=== PATIENT | female | born 1970 | race African-American/Black ===

== ENCOUNTER 2019-07-19 20:18 | Emergency (ER) | payer BC ==
[~2019-07-19] VITALS: Ht 165.1 cm; Wt 65.8 kg
[~2019-07-19 20:18] MED LIST: ATIVAN1 MG PO; LISINOPRIL-HCT1 EACH PO
[2019-07-19 20:53] LABS: ABSOLUTE BASOPHILS 0.1 thou/uL (0.0-0.2); ABSOLUTE LYMPHOCYTES 1.8 thou/uL (0.8-5.3); ABSOLUTE MONOCYTES 0.5 thou/uL (0.0-1.2); ABSOLUTE NEUTROPHILS 4.5 thou/uL (1.6-8.1); EOSINOPHILS 0.2 %; HEMATOCRIT 33.5 % (37.0-47.0); HEMOGLOBIN 11.1 gm/dL (12.0-15.0); LYMPHOCYTES 25.8 %; MCH 23.7 pg (26.0-34.0); MCHC 33.2 g/dL (28.0-37.0); MCV 71.4 fL (80.0-100.0); MONOCYTES 7.3 %; MPV 8.5 fl. (7.2-11.1); NUCLEATED RBCS 0 /100WBC; PLATELET COUNT* 392 thou/uL (150-400); POLYS 65.7 %; RBC 4.69 mil/uL (4.20-5.00); WBC 6.8 thou/uL (4.0-11.0)
[2019-07-19 21:05] LABS: APTT 25.9 Seconds (25.0-31.3); CALCIUM 9.3 mg/dL (8.5-10.1); CREATININE 1.2 mg/dL (0.6-1.3); INR 1.1; POTASSIUM 3.2 mmol/L (3.5-5.1)
[2019-07-19 21:16] LABS: TOTAL BILIRUBIN 0.7 mg/dL (<0.1-1.0); TOTAL PROTEIN 8.6 g/dL (6.4-8.2)
[2019-07-19 21:31] LABS: PLATELET ESTIMATE ADEQUATE
[2019-07-19 21:32] LABS: ANISOCYTOSIS 1+; HYPOCHROMASIA 1+; MICROCYTES 1+
[2019-07-19 22:40] VITALS: BP 125/76
--- NOTE | 2019-07-20 13:16 | EKG ---
[place] [address] ELECTROCARDIOGRAM REPORT Name: EVENS DESAI Room: [facility]#: [id number] Admission: 07/19/19 Attend Phys: Discharge: 07/19/19 Date of : 74 Date of Service: 07/19/192027 Report #: [id number] THIS REPORT FOR: //name// [facility] ED Test Date: 2019-07-19 Test Time: 20:28:26 Pat Name: EVENS DESAI Department: Room: Gender: F [employer]: : 1970 Requested By: Jorge Lincoln Order Number: [id number] MD: Franck Larson Measurements Intervals [place] Rate: 115 P: 53 [place]: 138 QRS: 27 QRSD: 77 T: 27 QT: 317 QTc: 439 Interpretive Statements Sinus tachycardia Probable left atrial enlargement Compared to ECG 10/24/2014 14:14:25 Sinus rhythm no longer present Electronically Signed On 07-20-2019 13:14:20 CDT by Franck Larson [email or web address] <ELECTRONICALLY SIGNED> By: Franck Larson MD, [facility] 07/20/19 1314 27 27 Franck Larson MD, [facility] /EPI
== END 2019-07-19 22:40 | disposition home or self-care (01) ==
LOC: M.ERS 20:18
PROVIDERS: Family Medicine
DX: R06.00 Dyspnea, unspecified (principal); I10 Essential (primary) hypertension; Z88.6 Allergy status to analgesic agent